=== PATIENT | male | born 1995 | race Caucasian/White ===

== ENCOUNTER 2018-11-06 17:37 | Emergency (ER) | payer SELFPAY ==
--- OUTSIDE RECORDS SUMMARY | 2018-11-06 17:39 | XMS REPORT ---
:1995 [facility] [address] [address] [place] [address] Care Team Providers Name Role Phone Unavailable Unavailable Unavailable Payers Payer Name Policy Type Policy Number Effective Date Expiration Date Problems This patient has no known problems. Allergies, Adverse Reactions, Alerts Allergy Allergy Status Severity Reaction(s) Onset Inactive Treating Comments Name Type Date Date Clinician No Known DA Active U 2018-06 Allergies -17 00:00:0 0 Medications This patient has no known medications.
[2018-11-06 18:34] LABS: Absolute Lymphocytes (CBC) 2.5 K/uL (0.7-4.9); Basophils % 0.7 % (0-1.3); Eosinophils % 1.4 % (0-4.4); Lymphocytes % 30.1 % (15.3-44.8); Monocytes % 5.7 % (3.3-12.3); RBC Red Blood Cell Count 5.28 M/uL (4.33-5.43)
[2018-11-06 18:39] LABS: Protime INR 0.96
[2018-11-06 18:41] LABS: Urine Blood NEGATIVE (NEG); Urine Glucose NEGATIVE (NEG); Urine Protein NEGATIVE (NEG); Urine Specific Gravity 1.015 (1.005-1.030)
[2018-11-06 18:42] LABS: Barbiturates NEGATIVE (NEGATIVE); Benzodiazepines NEGATIVE (NEGATIVE); Cocaine NEGATIVE (NEGATIVE); METHAMPHETAM NEGATIVE (NEGATIVE); Methadone NEGATIVE (NEGATIVE); Opiates NEGATIVE (NEGATIVE); Phencyclidine NEGATIVE (NEGATIVE); THC Cannibis POSITIVE (NEGATIVE)
[2018-11-06] MEDS ORDERED: NA CHLORIDE 0.9% 1,000 ML ONE (18:57)
--- NOTE | 2018-11-06 19:12 | RAD REPORT ---
EXAM DESCRIPTION: CT - [id number] - 11/06/2018 6:34 pm CLINICAL HISTORY: Headache, neck COMPARISON: None. TECHNIQUE: Axial 5 mm thick images of the head were obtained. Axial 2 mm thick images of the cervic al spine were obtained with sagittal and coronal reconstruction images generated and reviewed. All CT scans are performed using dose optimization technique as appropriate and may include automated exposure control or mA/KV adjustment according to patient size. FINDINGS: No intracranial hemorrhage, mass, edema or acute intracranial finding. No suspicion for ac steven infarction. No extra-axial fluid collections. Mastoid air cells and paranasal sinuses are clear. No globe or orbit abnormality seen. Cervical body height and alignment are normal. No disk space narrowing. No fracture or acute bony abn ormality. No paraspinal mass or hematoma. IMPRESSION: Negative CT head examination for acute or significant finding. Negative CT cervical spine examination for acute or significant finding.
[2018-11-06 20:04] LABS: ALT/SGPT 26 U/L (12-78); AST/SGOT 12 U/L (15-37); Albumin 4.1 g/dL (3.4-5.0); Alkaline Phosphatase 43 U/L (45-117); BUN Blood Urea Nitrogen 17 mg/dL (7-18); Bicarbonate 25 mmol/L (21-32); Bilirubin Direct < 0.1 mg/dL (0-0.2); Bilirubin Total 0.2 mg/dL (0.2-1.0); Glucose Level 96 mg/dL (74-106); Potassium 3.3 mmol/L (3.5-5.1); Protein, Total 7.3 g/dL (6.4-8.2); Sodium Level 142 mmol/L (136-145)
--- NOTE | 2018-11-06 20:44 | ER ---
Nurse's Notes [facility] Name: Dewayne Avila Age: 23 yrs Sex: Male : 1995 Arrival Date: 11/06/2018 Time: 17:42 Bed 14 Private MD: Diagnosis: Headache;neck and back pain Presentation: 11/06 17:43 Risk Assessment: Do you want to hurt yourself or someone else? Patient reports no tw2 desire to harm self or others. Initial Sepsis Screen: Does the patient meet any 2 criteria? No. Patient's initial sepsis screen is negative. Does the patient have a suspected source of infection? No. Patient's initial sepsis screen is negative. Care prior to arrival: None. 17:45 Presenting complaint: Patient states: Patient states he has back pain, went home and ae4 started to feel "jittery" and "shaky". Transition of care: patient was not received from another setting of care. Onset of symptoms was November 06, 2018. 17:45 Acuity: RELL 3 ae4 17:45 Method Of Arrival: EMS: [facility] ae4 Triage Assessment: 17:45 General: Appears uncomfortable, Behavior is cooperative, agitated, anxious, restless. ae4 Pain: Complains of pain in lumbar area, left low back and right low back Pain currently is 7 out of 10 on a pain scale. EENT: No signs and/or symptoms were reported regarding the EENT system. Neuro: Level of Consciousness is awake, alert, obeys commands, Oriented to person, place, time, situation, Appropriate for age. Cardiovascular: Heart tones S1 S2 present hands and feet are cold and clammy, patient appears to be shaky, speech is rapid. . Rhythm is regular. Respiratory: Airway is patent Respiratory effort is even, unlabored, shallow, Respiratory pattern is regular, symmetrical. GI: No signs and/or symptoms were reported involving the gastrointestinal system. Abdomen is round non-distended. : No signs and/or symptoms were reported regarding the genitourinary system. Urine is clear. Derm: Skin is clammy, Skin is pink, Skin temperature is cool. Musculoskeletal: Reports pain in back. Historical: - Allergies: 19:15 No Known Allergies; cc3 - Immunization history:: Adult Immunizations. - Social history:: Smoking status: . - Ebola Screening: : Patient denies travel to an Ebola-affected area in the 21 days before illness onset. Screenin:43 Abuse screen: Denies threats or abuse. Nutritional screening: No deficits noted. tw2 Tuberculosis screening: No symptoms or risk factors identified. Fall Risk None identified. Assessment: 19:15 Reassessment: Patient appears in no apparent distress at this time. Patient and/or cc3 family updated on plan of care and expected duration. Pain level reassessed. Patient is alert, oriented x 3, equal unlabored respirations, skin warm/dry/pink. Received this male patient from morning shift CLIFF Dunlap as a case of back pain, with IV cannula gauge 20 at the right ACV with ongoing IVF bolus of NS 1 liter infusing well. Patient denies pain at this time. Patient states feeling better. Patient states symptoms have improved. General: Appears in no apparent distress. comfortable, Behavior is calm, cooperative, appropriate for age. Pain: Denies pain. Neuro: Level of Consciousness is awake, alert, obeys commands, Oriented to person, place, time, situation, Appropriate for age. Cardiovascular: Denies chest pain, Capillary refill < 3 seconds Patient's skin is warm and dry. Respiratory: Airway is patent Respiratory effort is even, unlabored, Respiratory pattern is regular, symmetrical. GI: Abdomen is round non-distended. : No signs and/or symptoms were reported regarding the genitourinary system. EENT: No signs and/or symptoms were reported regarding the EENT system. Derm: Skin is intact, is healthy with good turgor, Skin is pink, warm \\T\\ dry. normal. Musculoskeletal: Circulation, motion, and sensation intact. Range of motion: intact in all extremities. 20:31 Reassessment: Patient appears in no apparent distress at this time. Patient and/or cc3 family updated on plan of care and expected duration. Pain level reassessed. Patient is alert, oriented x 3, equal unlabored respirations, skin warm/dry/pink. 21:00 Reassessment: Patient appears in no apparent distress at this time. Patient and/or cc3 family updated on plan of care and expected duration. Pain level reassessed. Patient is alert, oriented x 3, equal unlabored respirations, skin warm/dry/pink. PA Page discharged the patient home with prescription given. IV cannula removed and patient left ER vitally stable and ambulatory with his significant other. No valuables left in the patient's room. Patient denies pain at this time. Patient states feeling better. Patient states symptoms have improved. Vital Signs: 17:42 Temp 98.5(O); Pulse Ox 100% on R/A; Weight 91.63 kg (R); Height 5 ft. 6 in. (167.64 cm);tw2 17:43 Pain 6/10; tw2 18:52 BP 145 / 81; Pulse 73; Resp 18; Pulse Ox 98% on R/A; ae4 19:15 BP 127 / 82; Pulse 68; Resp 17 S; Temp 98.5(O); Pulse Ox 100% on R/A; cc3 20:50 BP 135 / 66; Pulse 72; Resp 17 S; Pulse Ox 97% on R/A; cc3 17:42 Body Mass Index 32.60 (91.63 kg, 167.64 cm) tw2 17:43 "if i move my back hurts" tw2 ED Course: 17:42 Patient arrived in ED. tw2 17:43 Cristobal Camarena PA is PHCP. cp 17:43 Sebastian Martinez MD is Attending Physician. cp 17:43 Arm band placed on. tw2 17:44 Miguel Williamson, CLIFF is Primary Nurse. ae4 17:44 Bed in low position. Call light in reach. Side rails up X2. Pulse ox on. NIBP on. tw2 17:49 Triage completed. ae4 18:26 Patient moved to [place]. nj 18:30 Inserted saline lock: 20 gauge in right antecubital area, using aseptic technique. ae4 Blood collected. 18:34 CT completed. Patient tolerated procedure well. Patient moved back from [place]. nj 18:35 CT Head C Spine In Process Unspecified. EDMS 18:49 EKG done, by ED staff, reviewed by Sebastian Martinez MD. ms 21:00 No provider procedures requiring assistance completed. IV discontinued, intact, cc3 bleeding controlled, No redness/swelling at site. Pressure dressing applied. Administered Medications: 18:51 Drug: NS 0.9% 1000 ml Route: IV; Rate: 1 bolus; Site: right antecubital; ae4 20:00 Follow up: Response: No adverse reaction; IV Status: Completed infusion; IV Intake: cc3 1000ml 20:50 Drug: Potassium Effervescent Tablet 50 mEq Route: PO; cc3 21:00 Follow up: Response: No adverse reaction cc3 Intake: 20:00 IV: 1000ml; Total: 1000ml. cc3 Outcome: 20:44 Discharge ordered by . fabian 21:00 Patient left the ED. cc3 21:00 Discharged to home ambulatory, with family. cc3 21:00 Condition: stable 21:00 Discharge instructions given to patient, family, Instructed on discharge instructions, follow up and referral plans. medication usage, Demonstrated understanding of instructions, follow-up care, medications, Prescriptions given X 1. Signatures: Dispatcher [employer] EDMS Soo Waters ms, Corey, PA PA cp Wise, Tara RN RN tw2 Chavez Delarosa Charlene cc3 Miguel Williamson RN RN ae4 Corrections: (The following items were deleted from the chart) 11/07 00:58 00:56 Allergies: No Known Allergies; cc3 cc3 00:59 11/06 20:31 BP 135 / 66; Pulse 72bpm; Resp 17bpm; Spontaneous; Pulse Ox 97% RA; cc3 cc3
--- NOTE | 2018-11-06 20:45 | EDPHYS ---
Physician Documentation [facility] Name: Dewayne Avila Age: 23 yrs Sex: Male : 1995 Arrival Date: 11/06/2018 Time: 17:42 Bed 14 Private MD: ED Physician Sebastian Martinez HPI: 11/06 18:05 This 23 yrs old Male presents to ER via EMS with complaints of Back Pain. cp 18:05 The patient complains of pain to the top of head. The patient describes the headache as cp aching. Onset: The symptoms/episode began/occurred today. Associated signs and symptoms: Pertinent positives: back pain. Severity of symptoms: in the emergency department the pain has improved, mildly. 18:05 Patient reports he was at home today when he started to have a headache. Took 2 cp ibuprofen w/o relief. Patient reports he "passed out" and family called EMS. Family member report they observed patient shaking and was unconscious until EMS arrived approximately 10-20 minutes later. EMS report patient was alert and answering questions upon arrival but "shaking" all over. No bowel or bladder incontinence observed. Historical: - Allergies: 19:15 No Known Allergies; cc3 - Immunization history:: Adult Immunizations. - Social history:: Smoking status: . - Ebola Screening: : Patient denies travel to an Ebola-affected area in the 21 days before illness onset. ROS: 18:20 Constitutional: Negative for body aches, chills, fever, poor PO intake. cp 18:20 Eyes: Negative for injury, pain, redness, and discharge. cp 18:20 ENT: Negative for drainage from ear(s), ear pain, sore throat, difficulty swallowing, difficulty handling secretions. 18:20 Neck: Positive for pain with movement, pain at rest, Negative for injury or acute deformity, stiffness. 18:20 Cardiovascular: Negative for chest pain, edema, palpitations. 18:20 Respiratory: Negative for cough, shortness of breath, wheezing. 18:20 Abdomen/GI: Negative for abdominal pain, vomiting, diarrhea, constipation, black/tarry stool, rectal bleeding. 18:20 Back: Positive for pain at rest, pain with movement, Negative for injury or acute deformity. 18:20 : Negative for urinary symptoms, testicular pain 18:20 MS/extremity: Negative for injury or acute deformity, decreased range of motion, paresthesias. 18:20 Skin: Negative for rash. 18:20 Neuro: Positive for headache, syncope, Negative for altered mental status, dizziness, weakness. 18:20 All other systems are negative. Exam: 18:25 Constitutional: The patient appears in no acute distress, alert, awake, cp non-diaphoretic, non-toxic, well developed, well nourished. 18:25 Head/Face: Normocephalic, atraumatic. Eyes: Pupils equal round and reactive to light, cp extra-ocular motions intact. Lids and lashes normal. Conjunctiva and sclera are non-icteric and not injected. Cornea within normal limits. Periorbital areas with no swelling, redness, or edema. ENT: Nares patent. No nasal discharge, no septal abnormalities noted. Tympanic membranes are normal and external auditory canals are clear. Oropharynx with no redness, swelling, or masses, exudates, or evidence of obstruction, uvula midline. Mucous membranes moist. 18:25 Neck: External neck: tenderness, that is mild, of the diffuse, ROM/movement: limited range of motion, is not appreciated, Meningeal signs: are not present, nuchal rigidity, is not appreciated. 18:25 Chest/axilla: Inspection: normal, Palpation: is normal, no crepitus, no tenderness. 18:25 Cardiovascular: Rate: normal, Rhythm: regular. 18:25 Respiratory: the patient does not display signs of respiratory distress, Respirations: normal, no use of accessory muscles, no retractions, no splinting, no tachypnea, labored breathing, is not present, Breath sounds: are clear throughout, no decreased breath sounds, no stridor, no wheezing. 18:25 Abdomen/GI: Inspection: abdomen appears normal, Palpation: abdomen is soft and non-tender, in all quadrants. 18:25 Back: pain, that is mild, of the diffuse, ROM is normal. 18:25 Skin: no rash present. 18:25 Neuro: Orientation: to person, place \\T\\ time. Mentation: is normal, Cerebellar function: is grossly normal, Motor: moves all fours, strength is normal, Sensation: no obvious gross deficits. 18:25 Psych: Behavior/mood is cooperative, Affect is calm, Delusions/hallucinations are not present. 18:55 ECG was reviewed by the Attending Physician. cp Vital Signs: 17:42 Temp 98.5(O); Pulse Ox 100% on R/A; Weight 91.63 kg (R); Height 5 ft. 6 in. (167.64 cm);tw2 17:43 Pain 6/10; tw2 18:52 BP 145 / 81; Pulse 73; Resp 18; Pulse Ox 98% on R/A; ae4 19:15 BP 127 / 82; Pulse 68; Resp 17 S; Temp 98.5(O); Pulse Ox 100% on R/A; cc3 20:50 BP 135 / 66; Pulse 72; Resp 17 S; Pulse Ox 97% on R/A; cc3 17:42 Body Mass Index 32.60 (91.63 kg, 167.64 cm) tw2 17:43 "if i move my back hurts" tw2 MDM: 17:54 Patient medically screened. cp 18:30 Differential diagnosis: meningoencephalitis, migraine, sinusitis, subarachnoid bleed, cp tension headache, drug effect, cardiac arrythmia, electrolyte abnormality. 20:41 Data reviewed: vital signs, nurses notes, lab test result(s), EKG, radiologic studies, cp CT scan. 20:41 Test interpretation: by ED physician or midlevel provider: ECG. Counseling: I had a cp detailed discussion with the patient and/or guardian regarding: the historical points, exam findings, and any diagnostic results supporting the discharge/admit diagnosis, lab results, radiology results, to return to the emergency department if symptoms worsen or persist or if there are any questions or concerns that arise at home. Response to treatment: the patient's symptoms have markedly improved after treatment, VSS. Patient reports symptoms resolved. Will discharge to home for continued monitoring. 11/06 17:59 Order name: Acetaminophen; Complete Time: 20:38 cp 11/06 17:59 Order name: Basic Metabolic Panel; Complete Time: 20:38 cp 11/06 17:59 Order name: CBC with Diff; Complete Time: 20:38 cp 11/06 17:59 Order name: ETOH Level; Complete Time: 20:38 cp 11/06 17:59 Order name: Hepatic Function; Complete Time: 20:38 cp 11/06 17:59 Order name: PT-INR; Complete Time: 20:38 cp 11/06 17:59 Order name: Ptt, Activated; Complete Time: 20:38 cp 11/06 17:59 Order name: Salicylate; Complete Time: 20:38 cp 11/06 17:59 Order name: Urine Drug Screen; Complete Time: 20:38 cp 12 18:00 Order name: CT Head C Spine; Complete Time: 20:38 cp 12 18:28 Order name: Urine Dipstick--Ancillary (enter results); Complete Time: 20:38 em1 11/06 17:59 Order name: EKG; Complete Time: 18:00 cp 11/06 17:59 Order name: EKG - Nurse/Tech; Complete Time: 18:50 cp 11/06 17:59 Order name: IV Saline Lock; Complete Time: 18:30 cp 11/06 17:59 Order name: Labs collected and sent; Complete Time: 18:30 cp 11/06 17:59 Order name: Urine Dipstick-Ancillary (obtain specimen); Complete Time: 18:26 cp EC:55 Rate is 65 beats/min. Rhythm is regular. [place] interval is normal. QRS interval is cp prolonged at 104 msec. QT interval is normal. Interpreted by me. Reviewed by me. Administered Medications: 18:51 Drug: NS 0.9% 1000 ml Route: IV; Rate: 1 bolus; Site: right antecubital; ae4 20:00 Follow up: Response: No adverse reaction; IV Status: Completed infusion; IV Intake: cc3 1000ml 20:50 Drug: Potassium Effervescent Tablet 50 mEq Route: PO; cc3 21:00 Follow up: Response: No adverse reaction cc3 Disposition: 11/07 07:38 Co-signature as Attending Physician, Sebastian Martinez MD. rn Disposition: 11/06/18 20:44 Discharged to Home. Impression: Headache, neck and back pain. - Condition is Stable. - Discharge Instructions: General Headache Without Cause, Musculoskeletal Pain. - Prescriptions for Ibuprofen 800 mg Oral Tablet - take 1 tablet by ORAL route every 8 hours As needed take with food; 30 tablet. - Medication Reconciliation Form, Thank You Letter, Antibiotic Education, Prescription Opioid Use form. - Follow up: Private Physician; When: 2 - 3 days; Reason: Recheck today's complaints. - Problem is new. - Symptoms have improved. Signatures: Dispatcher [employer] EDNV Sebastian Martinez MD MD rn Cristobal Camarena PA PA cp Wise Kelly, RN RN tw2 Theresa Rowe cc3 Miguel Williamson, RN RN ae4 Corrections: (The following items were deleted from the chart) 11/06 18:12 17:59 Head Brain Wo Cont+CT.RAD.BRZ ordered. EDMS EDMS 21:00 20:44 11/06/2018 20:44 Discharged to Home. Impression: Headache; neck and back pain. cc3 Condition is Stable. Forms are Medication Reconciliation Form, Thank You Letter, Antibiotic Education, Prescription Opioid Use. Follow up: Private Physician; When: 2 - 3 days; Reason: Recheck today's complaints. Problem is new. Symptoms have improved. 11/07 00:58 00:56 Allergies: No Known Allergies; cc3 cc3 03:57 00:19 ECG was reviewed by the Attending Physician. [facility] :57 00:19 Rate is 65 beats/min. Rhythm is regular. [place] interval is normal. QRS interval is cp prolonged at 104 msec. QT interval is normal. Interpreted by me. Reviewed by me.
[2018-11-06] MEDS ORDERED: POTASSIUM 25 MEQ EFFERV TAB ONE (21:06)
--- NOTE | 2018-11-07 09:58 | EKG ---
Test Date: 2018-11-06 Test Time: 18:47:52 Commutator Under[employer]ter: MEASUREMENT RESULTS: Intervals: Rate: 65 NH: 158 QRSD: 104 QT: 378 QTc: 393 [place]: P: 12 NH: 158 QRS: 38 T: 48 INTERPRETIVE STATEMENTS: Normal sinus rhythm Incomplete right bundle branch block Borderline ECG No previous ECG available for comparison Electronically Signed On 11-07-18 09:56:57 CDT by Urban Hager
== END 2018-11-06 21:00 | disposition home or self-care (01) ==
LOC: ER 17:37
DX: M54.5 Low back pain (principal); M54.2 Cervicalgia; R51 Headache
CPT/HCPCS: 36415; 70450; 72125; 80048; 80076; 80307; 80320; 80329; 81003; 85025; 85610; 85730; 93005; 96360; 99285; J7030